=== PATIENT | female | born 1980 | race Hispanic/Latino ===

== ENCOUNTER → 2023-03-29 | Outpatient (REF) | payer BC | LOC: US 13:55 | PROVIDERS: ATTEND Family Medicine | DX: N93.8 Other specified abnormal uterine and vaginal bleeding (principal); N83.202 Unspecified ovarian cyst, left side; N83.201 Unspecified ovarian cyst, right side; D25.9 Leiomyoma of uterus, unspecified | CPT/HCPCS: 76830; 76856 ==